=== PATIENT | female | born 1950 | race Caucasian/White ===

== ENCOUNTER → 2017-12-25 | Outpatient (CLI) | payer MEDICARE, OTHER ==
[~2017-12-25] MED LIST: BUDE3CAP2 PO; ESCI10TA10 PO; LORA-445 PO; METR500T PO; MULT-658 PO; OXYC-306 PO; PRED20TA PO; PREG25CA PO
== END ==
LOC: CFH 15:01
PROVIDERS: ATTEND Family Medicine
DX: M51.36 Other intervertebral disc degeneration, lumbar region (principal)
CPT/HCPCS: 72148